=== PATIENT | female | born 1935 | race African-American/Black ===

== ENCOUNTER 2019-02-10 16:14 | Emergency (ER) | payer MEDICARE, MEDICAID ==
[~2019-02-10] VITALS: Ht 157.5 cm; Wt 55.0 kg
[2019-02-10 21:18] VITALS: BP 115/75
== END 2019-02-10 21:19 | disposition home or self-care (01) ==
LOC: EDBD 16:14 → ER 16:14
DX: S00.83XA Contusion of other part of head, initial encounter (principal); I10 Essential (primary) hypertension; F03.90 Unspecified dementia, unspecified severity, without behavioral disturbance, psychotic disturbance, mood disturbance, and anxiety; Z79.82 Long term (current) use of aspirin; W03.XXXA Other fall on same level due to collision with another person, initial encounter; Y93.89 Activity, other specified; Y92.89 Other specified places as the place of occurrence of the external cause; Y99.8 Other external cause status
CPT/HCPCS: 99284